=== PATIENT | male | born 1945 | race Caucasian/White ===

== ENCOUNTER 2018-06-21 15:22 | Emergency (ER) | payer MEDICARE, SELFPAY ==
[2018-06-21] VITALS (16 sets, daily range): BP systolic 104–135; BP diastolic 52–67; PULSE 85–95; RESP 16–18; TEMP 36.7–36.8; O2SAT 79–99
--- NOTE | 2018-06-21 16:06 | W.ED.GENAD ---
Discharge Plan Disposition Patient Disposition: HOME Condition: Stable Discharge Details Chief Complaint: SOB Clinical Impression: On home oxygen therapy, History of lung cancer ED Provider: Allie Cooney Home Meds and New Rx's Prescriptions: Continue levothyroxine [Synthroid] 175 mcg Tablet 175 mcg PO DAILY RF: 0 diltiazem HCl 90 mg Capsule,Extended Release 12 Hr 90 mg PO DAILY RF: 0 aspirin 81 mg Tablet,Chewable 81 mg PO DAILY RF: 0 allopurinol 300 mg Tablet 150 mg PO BID RF: 0 Discharge Instructions Instructions: Using Oxygen at Home (ED) Additional Instructions: Return immediately to [place] to ensure you have enough oxygen supply. Follow up with your primary care doctor in 2 days for re-evaluation. Return immediately to the emergency department with any worsening or new concerning symptoms. Return the oxygen tank back to the hospital as directed when you return. Discharge Data Discharge Physician: Allie Cooney Medical Decision Making 72-year-old male with a history of lung cancer chronically on 2 L nasal cannula oxygen who presents for oxygen tank refill. Patient has been here for 3 days and is planning on staying here until 3 days from now. Patient denies any acute complaints and is declining workup at this time. States he is only here for an oxygen tank refill. Discussed with pt and nirandi with respiratory and pt and niece agreed that best plan would be for pt to go home to [place] today with an oxygen tank that we can give him here which can last a few hours until he gets home. We discussed that we would not be able to supply him with oxygen for the next 3 days. Gavin from [facility] called 3 medical supply companies and they were not able to help pt without a script from [place]. Dione lives nearby here and will return the O2 tank back to the hospital. HPI General Mode of arrival: ambulatory. Date/Time Provider Initiated Documentation: 06/21/18 15:37. Limitations to Documentation: no limitations. Information obtained by: patient. HPI Narrative: Patient is a 72-year-old male with a history of lung cancer chronically on 2 L of nasal oxygen for the past year who presents with request for oxygen tank refill. He has been here visiting from [place] for the past 3 days and his oxygen tank ran out this morning. He denies fever, worsening shortness of breath than usual, chest pain or any other concerns. Related Data Home Medications Medication Instructions Recorded Confirmed allopurinol 150 mg PO BID 06/21/18 06/21/18 aspirin 81 mg PO DAILY 06/21/18 06/21/18 diltiazem HCl 90 mg PO DAILY 06/21/18 06/21/18 levothyroxine [Synthroid] 175 mcg PO DAILY 06/21/18 06/21/18 Allergies Allergy/AdvReac Type Severity Reaction Status Date / Time Sulfa (Sulfonamide Allergy Severe Hives Unverified 06/21/18 15:34 Antibiotics) General Stated Complaint: SOB VANESSA: 4 Review of Systems Review of Systems All systems reviewed & are unremarkable except as noted in HPI and below PFSH Medical History COPD (chronic obstructive pulmonary disease) (Chronic) Coronary artery disease (Chronic) Gout (Chronic) Lung cancer (Chronic) Social History Smoking/Tobacco Use Status: Former Tobacco Use alcohol intake: current alcohol intake frequency: a few times a month substance use type: does not use Surgical History History of thyroid surgery (Acute) Hx of cholecystectomy (Chronic) Exam Const General: cooperative, healthy appearing and no acute distress HENMT Head: normal to inspection Mouth: oral mucosae normal Eyes General: appearance normal, both eyes and all related structures Neck Neck: normal visual inspection Resp Effort & Inspection: pursed lip breathing Auscultation: crackles bilaterally at the base Cardio Rate: regular rate Rhythm: regular rhythm Skin General skin exam: no rashes or lesions noted Neuro General: alert, awake and oriented x3 Motor: muscle tone normal throughout Extrem General: normal to inspection and full ROM Psych Appearance: grossly normal Affect: normal affect Course Vital Signs Pulse Oximetry 99 06/21/18 15:24 Temperature 98.1 F 06/21/18 15:28 Temperature Source Skin 06/21/18 15:28 Pulse 85 06/21/18 15:46 Respiratory Rate 18 06/21/18 15:50 Respiratory Effort 06/21/18 15:50 Respiratory Depth Deep 06/21/18 15:50 Blood Pressure 118/52 L 06/21/18 15:46 Blood Pressure Mean 68 06/21/18 15:46 Pulse Oximetry 99 06/21/18 15:46 Oxygen Delivery Method Room Air 06/21/18 15:28 Oxygen Flow Rate 0 06/21/18 15:28 Pain Level 0 06/21/18 15:28 Comment 06/21/18 15:28
== END 2018-06-21 16:55 | disposition home or self-care (01) ==
PROVIDERS: Emergency Provider Physician Assistant
DX: J44.9 Chronic obstructive pulmonary disease, unspecified (principal); Z85.118 Personal history of other malignant neoplasm of bronchus and lung; Z87.891 Personal history of nicotine dependence; Z99.81 Dependence on supplemental oxygen
CPT/HCPCS: 80053; 99283; 83735; 84484; 85025